=== PATIENT | male | born 2000 ===

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

== ENCOUNTER 2019-01-15 08:37 | Emergency (ER) | payer MEDICAID ==
--- NOTE | 2019-01-15 09:14 | CT ---
EXAM: Brain CTWithout contrast: HISTORY: Dizziness, lightheadedness, headache COMPARISON: None FINDINGS: Sclerotic margined right calvarial bone lesion, nonaggressive appearance. No focal mass or midline shift. No intra or extra-axial hemorrhage. Sinuses and mastoids are clear of acute process. IMPRESSION: No mass or bleed or other significant acute intracranial process.
--- NOTE | 2019-01-19 01:03 | EKG ---
Test Reason : Blood Pressure : / mmHG Vent. Rate : 063 BPM Atrial Rate : 063 BPM P-R Int : 118 ms QRS Dur : 080 ms QT Int : 362 ms P-R-T Axes : 037 016 014 degrees QTc Int : 370 ms Normal sinus rhythm with sinus arrhythmia Normal ECG Confirmed by ROQUE CASTRO ([id number]), managing editor HAWK WIGGINS ([id number] on 01/19/2019 1:02:08 AM Referred By: Confirmed By:ROQUE CASTRO
== END 2019-01-15 09:37 | disposition home or self-care (01) ==
LOC: ERS 08:37
DX: S09.90XA Unspecified injury of head, initial encounter (principal); F17.210 Nicotine dependence, cigarettes, uncomplicated; Y04.0XXA Assault by unarmed brawl or fight, initial encounter
CPT/HCPCS: 70450; 93005